=== PATIENT | female | born 1935 | race Caucasian/White ===

== ENCOUNTER 2016-07-26 12:26 | Inpatient (IN) | payer MEDICARE, OTHER ==
--- NOTE | ~2016-07-26 | HP ---
History And Physical [place] [id number] [place]. [address] NAME: RADHA HAILE : 37 STATUS : ADM IN [facility]#: [id number] AGE: 81 ADM/REG DATE : 07/26/16 MR#: [id number] REPORT SERV DATE: 07/26/16 DICTATED BY: KATIE LUBIN DATE: 07/26/16 REPORT STATUS : Draft TRANSCRIBED BY: MODFei DATE: 07/26/16 DATE OF ADMISSION: 07/26/2016 REASON FOR ADMISSION: This is a cardiology admission H and P regarding elevated troponin, probable ine-KM-lwwiomwxz myocardial infarction. HISTORY OF PRESENT ILLNESS: Ms. Haile is a very pleasant 81-year-old woman. She is a patient of Dr. Emery Ruggiero, who sees her for paroxysmal atrial fibrillation. The patient has CAD risk factors most notable for age and a positive family history of premature coronary artery disease. The patient was at home last evening, noted left arm pain described as a severe dull ache. She felt this radiating into her jaw. She denied any shortness of breath or chest pain. This episode occurred at rest. She has had some similar episodes but not quite as severe in the last few weeks. She presented to the emergency room today because of the symptoms, although her discomfort had cleared by then. In the emergency room, an EKG was performed that did not demonstrate any acute findings. Her troponin, however, was elevated at 2.55. The patient denied any palpitations and there has been no evidence of any atrial arrhythmia issues. PAST MEDICAL HISTORY: Notable for paroxysmal atrial fibrillation, treated with flecainide. There is no preexisting history of coronary artery disease. She denies a history of hypertension, but she appears she is on multiple antihypertensive medications. She has a history of hiatal hernia and obstructive sleep apnea. CURRENT MEDICATIONS: Include apixaban 2.5 mg p.o. b.i.d., flecainide 50 mg p.o. b.i.d., Prevacid, losartan and hydrochlorothiazide, and nifedipine. FAMILY HISTORY: Notable for mother who had premature coronary artery disease. SOCIAL HISTORY: Negative for tobacco or alcohol. REVIEW OF SYSTEMS: As noted above. All other systems reviewed and negative. PHYSICAL EXAMINATION: GENERAL: She is in no acute distress. She is denying any chest or arm pain at this point in time. VITAL SIGNS: Her blood pressure is 153/68, pulse is 62 and regular, and respirations 16. HEENT: No icterus. Good dentition. NECK: Supple. No masses or thyromegaly LUNGS: Breathing comfortably. No rales or wheezes. COR: Normal S1, S2. No S3 or S4. No murmurs, clicks, rubs. No JVD ABD: Soft, nondistended, nontender, no hepatosplenomegaly. EXT: No clubbing, cyanosis or edema. Peripheral pulses 2+/=bilaterally. SKIN: Warm and dry. No visible lesions. History And Physical [address] [place]. [address] NAME: RADHA HAILE : 37 STATUS : ADM IN [facility]#: [id number] AGE: 81 ADM/REG DATE : 07/26/16 MR#: [id number] REPORT SERV DATE: 07/26/16 DICTATED BY: KATIE LUBIN DATE: 07/26/16 REPORT STATUS : Draft TRANSCRIBED BY: NICOLE DATE: 07/26/16 MS: Chest wall without deformity, no obvious clavicular fractures. NEURO/PSYCH: Oriented X3. No anxiety or depression. IMAGING PROCEDURE: EKG demonstrates sinus rhythm, heart rate 62 beats per minute. First degree AV block, probable inferior Q-waves consistent with previous inferior myocardial infarction. QRS and QT are intervals within normal limits. LABORATORY VALUES: BUN, creatinine, and electrolytes all within normal limits. White count within normal limits. H and H within normal limits. Troponin elevated at 2.55. IMPRESSION: 1. Left arm pain and positive troponin very suggestive of non-ST elevation myocardial infarction. 2. History of atrial fibrillation, treated with flecainide. 3. History of reflux disease and hiatal hernia. 4. History of hypertension, on multiple antihypertensive medicines. PLAN: 1. Troponin q.8 hours x3. 2. We will hold Eliquis. 3. We will start heparin 12 hours after her last Eliquis dose. This will occur at 7 p.m. We will give a bolus of heparin at the same time. 4. Discontinue flecainide given the patient appears to have probable myocardial infarction. 5. Plan for cardiac catheterization tomorrow with possible PTCA and stents history. I have described the procedure to the patient, noted inherent risks, including bleeding, infection, heart attack, stroke, and risk of . She is willing to proceed. ADDENDUM: Because of borderline sinus bradycardia and first-degree AV block, I am going to not administer beta shaquille at this point in time. She did receive a 325 mg aspirin and will continue with 81 mg aspirin as well. NICKOLAS/NICOLE Katie Lubin M.D. / [id number] CC: Katie Lubin M.D. NO PCP
--- NOTE | ~2016-07-26 | CN ---
Consultation Report [facility] [address] [place]. [address] NAME: RADHA HAILE : 37 STATUS : ADM IN PAT#: [id number] AGE: 81 ADM/REG DATE : 07/26/16 MR#: [id number] REPORT SERV DATE: 07/27/16 DICTATED BY: URDY CASTELLON DATE: 07/27/16 REPORT STATUS : Draft TRANSCRIBED BY: MODL DATE: 07/27/16 DATE OF CONSULTATION: 07/27/2016 NURSE PRACTITIONER WITH [facility] REASON FOR CONSULTATION: Multivessel coronary artery disease. HISTORY OF PRESENT ILLNESS: This is a pleasant 81-year-old female, who has a history of paroxysmal atrial fibrillation on flecainide and Eliquis, who presented to the emergency room on 07/26/2016 with complaints of left arm pain and pain radiating up into her jaw. Her EKG was normal with initial troponin of 2.55. She was admitted with NSTEMI and taken for a cardiac catheterization today and found to have multivessel coronary artery disease including a severe 99% mid RCA, 85% proximal to the 70% mid LAD, 80% 1st diagonal, 85% 2nd diagonal, 75% 1st obtuse marginal and 80% proximal circ. There is no mention of valvular abnormality echocardiogram is currently pending. Currently, the patient is recovering after cardiac catheterization with no complaints of chest pain or shortness of breath. Her family is with her at the bedside. PAST MEDICAL HISTORY: Significant for paroxysmal atrial fibrillation. First-degree AV block. Renal insufficiency. Hiatal hernia. Obstructive sleep apnea. High blood pressure. FAMILY HISTORY: She has a mother and brother with heart disease. SOCIAL HISTORY: She is , with a daughter. No use of tobacco, alcohol, or use of illicit drugs. ALLERGIES: CIPRO AND NIACIN. MEDICATIONS: Eliquis 2.5 mg p.o. b.i.d., last dose yesterday; flecainide 50 mg p.o. b.i.d.; Prevacid 15 mg daily p.r.n.; Hyzaar 50/12.5 p.o. daily; and nifedipine 30 mg per day. REVIEW OF SYSTEMS: A 10-point review of systems was obtained and is negative other than in HPI. PHYSICAL EXAMINATION: VITAL SIGNS: From today, temperature 98.3, heart rate 53, sinus mireille with first degree AV block, blood pressure 134/63, respiratory rate 16, and O2 saturation 97%. GENERAL: Pleasant thin female, in no acute distress. NEUROLOGIC: Alert and oriented x3. Pupils exhibit PERRLA. HEENT: Head normocephalic and atraumatic. Sclerae clear. NECK: Supple. LUNGS: Clear to auscultation bilaterally with normal effort. CARDIAC: S1 and S2 with no murmurs or rubs or gallops. Sinus bradycardia with first-degree AV block. ABDOMEN: Soft, flat nontender with active bowel sounds. EXTREMITIES: Free of cyanosis, clubbing, or edema. Consultation Report [place] [id number] [facility] [place]. [address] NAME: RADHA HAILE : 37 STATUS : ADM IN [facility]#: [id number] AGE: 81 ADM/REG DATE : 07/26/16 MR#: [id number] REPORT SERV DATE: 07/27/16 DICTATED BY: RUDY CASTELLON DATE: 07/27/16 REPORT STATUS : Draft TRANSCRIBED BY: NICOLE DATE: 07/27/16 LAB DATA: White blood cell count 6.0, hemoglobin 12.6, hematocrit 36.6, and platelets 218. Sodium 137, potassium 4.0, chloride 103, bicarbonate 23, BUN 29, and creatinine 1.1. Glucose 83. ASSESSMENT AND PLAN: This is a pleasant 81-year-old female, who has had a history of paroxysmal atrial fibrillation and high blood pressure, presented to the ER with left arm pain and jaw pain. Her troponin was elevated although EKG showed no acute ST changes. She was admitted with NSTEMI and taken for cardiac catheterization today and found to have multivessel coronary artery disease with a very tight right coronary artery as described above. The patient has been on Eliquis with her last dose yesterday and is currently free of any chest pain. She is being started on heparin drip and Eliquis has been on hold. I discussed the plan of care with Dr. Forrest and reviewed the images with him in the operating room, and he is hesitant to take her to surgery today since she is not having any symptoms and her last dose of Eliquis was yesterday. We will plan for surgical intervention on Saturday morning at 8 a.m. and I will notify the on-call for the surgeon this weekend should she began to start having symptoms. I discussed risks and benefits of coronary artery bypass grafting with the patient and her family also discussed STS risk scores. STS risk stratification for her and this particular surgery include an overall mortality of 3.9% and a morbidity mortality of 21%. I discussed these findings in regard to expectations for surgery in recovery and they are willing to proceed. We will order bilateral lower extremity venous mapping and carotid ultrasound. We will also hold the Hyzaar for now and await renal recovery. Thank you for the consultation. ROSA/NICOLE Rudy Castellon NP / [id number] CC: Andrae Wilcox M.D.
--- NOTE | ~2016-07-26 | DS ---
Discharge Summary [facility] [address] [place]. [address] NAME: RADHA HAILE : 39 STATUS : DIS IN PAT#: [id number] AGE: 81 ADM/REG DATE : 07/26/16 MR#: [id number] REPORT SERV DATE: 08/14/16 DICTATED BY: KATIE LUBIN DATE: 08/13/16 REPORT STATUS : Draft TRANSCRIBED BY: MODFei DATE: 08/13/16 Data Collection from hospitalization DISCHARGE DIAGNOSES: 1. Coronary artery disease. 2. Paroxysmal atrial fibrillation. 3. Hypertension. 4. Byh-LE-xnvokbfxx myocardial infarction. 5. Obstructive sleep apnea. 6. Hiatal hernia. 7. Renal insufficiency. CONSULTATIONS: Duarte Gomes NP. PROCEDURES: 1. Cardiac catheterization, 07/27/2016. 2. Median sternotomy, extracorporeal circulation, urgent coronary artery bypass grafting x4 with PARK to the LAD, reverse greater saphenous vein graft to the diagonal-2, reverse greater saphenous vein graft to the obtuse marginal #1, reverse greater saphenous vein graft to the right coronary artery, pulmonary vein isolation, left atrial appendage clip with 35 mm atrial clip, transesophageal echocardiogram, endoscopic vein harvest from the bilateral thighs, Prevena dressing placement, 07/30/2016. 3. Carotid blood flow study, 07/28/2016, vein mapping of the bilateral lower extremities 07/28/2016. DISCHARGE MEDICATIONS: Vitamin C 1000 mg twice a day, Halfprin 81 mg daily, Lipitor 40 mg at bedtime, Lopressor 12.5 mg every 12 hours as instructed, Hyzaar one tablet every evening, Eliquis 2.5 mg twice a day, Prevacid 15 mg daily as needed. CONDITION ON DISCHARGE: Stable. DISPOSITION: The patient was discharged to [facility] on a cardiac diet with activities as instructed. She would follow up with Dr. Rip Forrest, 08/21/[address] Ruggiero, 08/29/2016. HOSPITAL COURSE: This is a 81-year-old female who is a patient of Dr. Emery Ruggiero. He sees her for paroxysmal atrial fibrillation. The patient has coronary artery disease risk factors most notable for age and positive family history of premature coronary artery disease. The patient was home on the evening prior to this admission and developed left arm pain that she described as a severe dull ache. She felt this radiating into her jaw. She denied any shortness of breath or chest pain. This episode occurred at rest. She had some similar episodes but not quite as severe in the past few weeks. She presented to the emergency room because of the symptoms although her discomfort had cleared by then. In the emergency room, an EKG did not demonstrate any acute findings. Her troponin was elevated at 2.55. She denied any palpitations and there was no evidence of any atrial arrhythmia issues. She was admitted to the hospital for further evaluation and treatment. Discharge Summary [place] [id number] [facility] [place]. [address] NAME: RADHA HAILE : 39 STATUS : DIS IN [facility]#: [id number] AGE: 81 ADM/REG DATE : 07/26/16 MR#: [id number] REPORT SERV DATE: 08/14/16 DICTATED BY: KATIE LUBIN DATE: 08/13/16 REPORT STATUS : Draft TRANSCRIBED BY: NICOLE DATE: 08/13/16 Upon admission, troponin was elevated at 2.55. It was felt that her symptoms were very suggestive of dya-OG-cezdugbba myocardial infarction. We were going to check troponin every 8 hours x3. Eliquis was held. We were going to start heparin 12 hours after her last Eliquis dose. She was going to be given a bolus of heparin at the same time. Flecainide was discontinued. It was felt that the patient would need to undergo cardiac catheterization and possible PTCA. Because of borderline sinus bradycardia and first degree AV block, I elected not to administer beta-shaquille at this point in time. She did receive aspirin and we would continue with 81 mg of aspirin as well. On the day following admission, the patient was taken to the [facility] by Dr. Hoang where she underwent the above-mentioned procedure. She tolerated this well. There were no complications. She was seen by Duarte Gomes. Cardiac catheterization revealed multivessel coronary artery disease including severe 99% mid RCA, 85% proximal to 70% mid LAD, 80% first diagonal, 85% second diagonal, 75% first obtuse marginal, and 80% proximal circumflex. There was no mention of valvular abnormality. Echocardiogram was pending. It was felt that the patient would need to undergo coronary artery bypass grafting. Hyzaar was held. On 07/28/2016, a carotid blood flow study was performed as well as vein mapping of the bilateral lower extremities. Echocardiogram was also performed. She remained comfortable. She had no chest pain. Beta-shaquille was held preoperatively for bradycardia. On 07/30/2016, the patient was taken to the operating room by Dr. Rip Forrest where she underwent the above-mentioned procedure. She tolerated this well and there were no complications. On postop day #1, she was up sitting in a chair. She looked good. She said she felt sore but this was tolerable. She had a decreased appetite. Creatinine level was stable at 0.92. On postop day #2, she had decreased urine output. She had good response to Lasix. Diuresis continued. She was off Cardene. Blood pressure was controlled. Her rhythm was stable. On 08/02/2016, she had good urine output with Lasix. She still did not have much of an appetite. She felt fatigued. She was ambulatory. She still had some sternal discomfort which was tolerable with medications. She had multiple bowel movements. Discharge planning was performed. Amiodarone was going to be discontinued at discharge. On 08/04/2016, her sternum was clean, dry, and intact. She had no new complaints. Her lungs were clear. Discharge instructions were given. Due to her improved and stable condition, she was discharged to [facility] with the above-stated instructions. Information collected by: Hailey Mustafa I submit the above information as my discharge summary. TG/MODL Katie Lubin M.D. / [id number] CC: Katie Lubin M.D. Discharge Summary [address] [address] NAME: RADHA HAILE : 37 STATUS : DIS IN PAT#: [id number] AGE: 81 ADM/REG DATE : 07/26/16 MR#: [id number] REPORT SERV DATE: 08/14/16 DICTATED BY: KATIE LUBIN DATE: 08/13/16 REPORT STATUS : Draft TRANSCRIBED BY: NICOLE DATE: 08/13/16 [facility]
--- NOTE | ~2016-07-26 | OP ---
Record Of Operation [facility] [place]. [address] NAME: RADHA HAILE : 37 STATUS : ADM IN PAT#: [id number] AGE: 81 ADM/REG DATE : 07/26/16 MR#: [id number] REPORT SERV DATE: 07/30/16 DICTATED BY: RIP KILPATRICK DATE: 07/30/16 REPORT STATUS : Draft TRANSCRIBED BY: MODFei DATE: 07/30/16 DATE OF PROCEDURE: 07/30/2016 ATTENDING PHYSICIAN: Rip Kilpatrick MD REFERRING PHYSICIANS: Dr. Andrae Wilcox, Dr. Emery Ruggiero, and Dr. Mati Up. ASSISTANTS: MERE Etienne. ANESTHESIOLOGIST: Dr. Emery Short. PREOPERATIVE DIAGNOSES: 1. Ron-UO-bjfflxl elevation myocardial infarction. 2. Three-vessel coronary disease. 3. Paroxysmal atrial fibrillation. 4. Bradycardia. 5. Hypertension. 6. Hyperlipidemia. 7. Obstructive sleep apnea. 8. Hiatal hernia. POSTOPERATIVE DIAGNOSES: 1. Xqe-LW-hsjcsov elevation myocardial infarction. 2. Three-vessel coronary disease. 3. Paroxysmal atrial fibrillation. 4. Bradycardia. 5. Hypertension. 6. Hyperlipidemia. 7. Obstructive sleep apnea. 8. Hiatal hernia. OPERATION PROCEDURE PERFORMED: 1. Median sternotomy. 2. Extracorporeal circulation. 3. Urgent coronary artery bypass grafting x4, PARK to the left anterior descending, reverse greater saphenous vein graft to D2, reverse greater saphenous vein graft to obtuse marginal #1, reverse greater saphenous vein graft to RCA. 4. Pulmonary vein isolation. 5. Left atrial appendage clip with 35 mm AtriClip. 6. RACQUEL. 7. Endoscopic vein harvest of bilateral thighs. 8. Prevena dressing placement. COMPLICATIONS: None. TUBES AND DRAINS: A 24-Beninese Antwan, 30-Beninese straight atrial and ventricular wires. Record Of Operation [facility] [address] [place]. [address] NAME: RADHA HAILE : 37 STATUS : ADM IN PAT#: [id number] AGE: 81 ADM/REG DATE : 07/26/16 MR#: [id number] REPORT SERV DATE: 07/30/16 DICTATED BY: RIP KILPATRICK DATE: 07/30/16 REPORT STATUS : Draft TRANSCRIBED BY: MODL DATE: 07/30/16 POSTOPERATIVE CONDITION: Stable to CVICU. INTRAOPERATIVE FINDINGS: Excellent conduit, excellent target, excellent ventricle. On transesophageal echo, there was normal EF, no MR, no AI, no with no clot in the left atrial appendage. There was preserved EF post bypass. Pulmonary vein isolation was done with AtriCure clamp 3 times on each pulmonary vein cuff of the left atrium. It was applied in use per brush head maker's specifications. DETAILS: Left atrial appendage clip was sized to a 35 mm clip and this was applied without incident. DETAILS OF CARDIOPULMONARY BYPASS GRAFTING: Grafts: 1. Graft #1: Left internal mammary artery, left anterior descending was a 1.5 mm target with excellent Doppler signals both pre and post protamine. 2. Graft #2: Reverse greater saphenous vein graft to D2. This was again a 1.5 mm target with excellent Doppler signals both pre and post protamine. 3. Graft #3: Reverse greater saphenous vein graft to obtuse marginal #1 was a 2 mm target with excellent Doppler signals both pre and post protamine. 4. Graft #4: Reverse greater saphenous vein graft to right coronary artery distal right, this was a 2 mm target again with excellent Doppler signals both pre and post protamine. INDICATIONS FOR PROCEDURE: Ms. Haile is a 81-year-old female with a history of NSTEMI three- vessel disease ,paroxysmal atrial fibrillation, bradycardia, hypertension, hyperlipidemia, and obstructive sleep apnea who was admitted to the hospital with NSTEMI and underwent heart catheterization and was referred for surgery. She was considered as well due to her paroxysmal atrial fibrillation for a pulmonary vein isolation and an AtriClip. The risks, benefits, and alternatives were discussed with the patient including but not limited to bleeding, infection, stroke, , heart attack, need for future operations. All questions were answered. Her STS score was discussed with her as well. STS mortality less than 5% and morbidity less than 20% were discussed with her. DETAILS OF PROCEDURE: The patient was brought to the operating room, placed on the operating room table. After satisfactory induction of general endotracheal anesthesia, she was prepped and draped in the usual sterile fashion. Working simultaneously, endoscopic vein harvest was performed from both thighs while median sternotomy was performed. Median sternotomy was performed. Skin and subcutaneous tissues were divided. Clavipectoral fascia was divided. The sternum was divided. Midline hemostasis was achieved. The Rultract retractor was placed. The internal mammary artery was harvested in a pedicle fashion. There was takeoff under the subclavian artery and subclavian vein to the bifurcation of the diaphragm. Systemic heparin sedation was achieved. After 3 minutes, the pedicle was clipped and divided at the bifurcation of the diaphragm. The Rultract retractor was removed. Hemostasis had been obtained along the chest wall and a 24-Beninese Antwan was placed in the left pleural space and exteriorized. The sternal retractor was placed. The thymic tissue was divided in the midline up to the innominate vein. The pericardium was opened in the midline and along the diaphragm. Pericardial well was created. Ascending aorta was Record Of Operation [facility] [address] [facility] [place]. [address] NAME: RADHA HAILE : 39 STATUS : ADM IN [facility]#: [id number] AGE: 81 ADM/REG DATE : 07/26/16 MR#: [id number] REPORT SERV DATE: 07/30/16 DICTATED BY: RIP KILPATRICK DATE: 07/30/16 REPORT STATUS : Draft TRANSCRIBED BY: NICOLE DATE: 07/30/16 cannulated at the base of the innominate artery through a dual pursestring with a soft flow arterial cannula. Dual stage venous cannula was placed through a pursestring in the right atrial appendage. The antegrade root vent cardioplegia tack was placed. Conduit was inspected and prepared for bypass. Cardiopulmonary bypass was initiated after the documentation of adequate ACT. After initiating bypass, the pulmonary vein isolation was performed. The right atrial vein cuff of the left atrium was encircled and fired and the clamp was used as per the brush head maker's specifications. The same was done on the left. The ligament of Felipe was dissected on the left side. AtriClip was sized to a 35 mm clip and the clip was applied after the heart was arrested. Cross-clamp was brought up. Heart was arrested with cold antegrade cardioplegia switching cold antegrade cardioplegia every 15 to 20 minutes throughout the remainder of the cross clamp. The grafts were then performed as mentioned in the findings. All distal anastomoses were done with 8-0 Surgipro. Proximal anastomoses were done after measuring the veins cutting, spatulating. Aortotomies were performed and creating an aortotomy with an 11 blade. This was enlarged with a 4.5 mm punch. The anastomoses were done with 6-0 Prolene. Vein markers were placed. The internal mammary artery was brought down through a wide V in the pericardium. It was placed to the soft spot on the anterior surface of the LAD. This anastomosis was done with 8-0 Surgipro. The pedicle was attached to the heart in two places and there was excellent Doppler signals both distal and proximal to the anastomosis and the graft. Cross-clamp was removed. The grafts were de-aired prior to the cross-clamp being removed. Atrial and ventricular pacing wires were placed. The patient returned to paced rhythm and was able to be weaned from cardiopulmonary bypass without incident. Protamine was administered. She was decannulated. All cannulae and cannulation sites were oversewn with 4-0 Prolene. A 32-Beninese chest tube was placed beneath the sternum. The pericardium was loosely reapproximated over the right ventricle and the ascending aorta. Sternum was then reapproximated using stainless steel sternal wires. Some of these were double wires. The clavipectoral fascia was reapproximated using running #1 StrataFix. The subcutaneous tissue was closed using running #1 StrataFix. Skin closed using 2-0 Quill and a Prevena dressing was placed. The patient tolerated the procedure well and went to the CVICU in critical stable condition. [facility]/MODL Rip Kilpatrick MD / [id number] CC: Andrae Wilcox M.D.
[~2016-07-26 12:26] MED LIST: AFEDITAB30 MG PO; ELIQUIS 2.5 MG2.5 MG PO; FLECAINIDE50 MG PO; HYZAAR 50/12.51 TAB PO; PREV15 PO
[2016-07-26 13:18] LABS: BASOPHILS 0.3 %; BASOPHILS ABSOLUTE 0.02 10/3/uL (0.0-0.16); EOSINOPHILS 2.2 %; EOSINOPHILS ABSOLUTE 0.13 10/3/uL (0.0-0.53); HEMATOCRIT 39.2 % (36.0-48.0); HEMOGLOBIN 13.2 g/dL (12.0-16.0); IMMATURE GRANULOCYTES 0.2 %; IMMATURE GRANULOCYTES ABSOLUTE 0.01 10/3/uL (0.0-0.11); LYMPHOCYTES 28.2 %; LYMPHOCYTES ABSOLUTE 1.65 10/3/uL (0.67-4.30); MEAN CORPUS HGB CONC 33.7 g/dL (32.0-36.0); MEAN CORPUSCULAR HEMOGLOB 30.6 pg (26.0-34.0); MONOCYTES 8.2 %; MONOCYTES ABSOLUTE 0.48 10/3/uL (0.21-1.20); NEUTROPHILS 60.9 %; NEUTROPHILS ABSOLUTE 3.56 10/3/uL (2.02-8.40); PLATELET COUNT 237 10/3/uL (150-400); RBC DISTRIBUTION WIDTH 12.1 % (12.0-16.0); RED CELL COUNT 4.31 10/6/uL (4.0-5.6); WHITE BLOOD CELLS 5.9 10/3/uL (4.5-10.5)
[2016-07-26 13:19] LABS: ER CBC TAT 0 Hrs 06 MinsNP; MANUAL DIFF NO %
[2016-07-26 13:24] LABS: INTERNATIONAL NORMAL RATI 1.2 UNITS (-); PARTIAL THROMBO TIME 35.5 SEC (22.5-37.2); PROTIME (NOT ORD) 15.1 SEC (12.0-14.5)
[2016-07-26 13:36] LABS: BUN (BLOOD UREA NITROGEN) 25 MG/DL (6-23); CALCIUM, SERUM 9.4 MG/DL (8.5-10.4); CHEST PAIN PROFILE TAT 0 Hrs 24 Mins; CHLORIDE, SERUM 102 MMOL/L (96-112); CO2 (CARBON DIOXIDE) 26 MMOL/L (24-34); CREATININE 1.13 MG/DL (0.55-1.02); GFR AFRICAN AMERICAN 54 ML/MIN (>=60); GFR NON AFRICAN AMERICAN 46 ML/MIN (>=60); GLUCOSE, SERUM 83 MG/DL (60-99); POTASSIUM, SERUM 3.9 MMOL/L (3.5-5.3); SODIUM, SERUM 136 MMOL/L (135-148); TROPONIN I 2.55 NG/ML (<0.05)
[2016-07-26 21:46] LABS: ASCORBIC ACID (UR NOT ORDER) NEG (NEG); BILIRUBIN, URINE NEGATIVE (NEG); KETONE, URINE TRACE MG/DL (NEG); LEUKOCYTE ESTERASE(NOT OR NEG (NEG); WBC (NOT ORDERED) (RFLEX) 1 (0-5)
[2016-07-27 05:24] LABS: CHLORIDE, SERUM 103 MMOL/L (96-112); CHOL/HDL RATIO(NOT ORDER) 4.8 (0-5); CHOLESTEROL 219 MG/DL (< 200); CO2 (CARBON DIOXIDE) 23 MMOL/L (24-34); CREATININE 1.11 MG/DL (0.55-1.02); GFR AFRICAN AMERICAN 55 ML/MIN (>=60); GFR NON AFRICAN AMERICAN 47 ML/MIN (>=60); GLUCOSE, SERUM 83 MG/DL (60-99); HDL CHOLESTEROL 46 MG/DL (> 49); NON-HDL CHOLESTEROL 173 MG/DL (< 160); SGPT(ALT) 16 U/L (5-65); SODIUM, SERUM 137 MMOL/L (135-148)
[2016-07-27 05:29] LABS: BUN (BLOOD UREA NITROGEN) 29 MG/DL (6-23); LDL CHOLESTEROL 152 MG/DL (< 130); TRIGLYCERIDE 107 MG/DL (< 150); TROPONIN I 1.74 NG/ML (<0.05)
[2016-07-27 05:53] LABS: BASOPHILS 0.7 %; BASOPHILS ABSOLUTE 0.04 10/3/uL (0.0-0.16); EOSINOPHILS 5.5 %; EOSINOPHILS ABSOLUTE 0.33 10/3/uL (0.0-0.53); HEMATOCRIT 36.6 % (36.0-48.0); HEMOGLOBIN 12.6 g/dL (12.0-16.0); IMMATURE GRANULOCYTES 0.2 %; IMMATURE GRANULOCYTES ABSOLUTE 0.01 10/3/uL (0.0-0.11); LYMPHOCYTES 42.7 %; LYMPHOCYTES ABSOLUTE 2.57 10/3/uL (0.67-4.30); MEAN CORPUS HGB CONC 34.4 g/dL (32.0-36.0); MEAN CORPUSCULAR HEMOGLOB 31.5 pg (26.0-34.0); MEAN CORPUSCULAR VOLUME 91.5 fL (80-100); MEAN PLATELET VOLUME 10.4 fL (9.2-13.0); MONOCYTES ABSOLUTE 0.54 10/3/uL (0.21-1.20); NEUTROPHILS 41.9 %; NEUTROPHILS ABSOLUTE 2.53 10/3/uL (2.02-8.40); PLATELET COUNT 218 10/3/uL (150-400); RBC DISTRIBUTION WIDTH 12.5 % (12.0-16.0)
[2016-07-27 05:54] LABS: MANUAL DIFF NO %
[2016-07-27 19:34] LABS: INTERNATIONAL NORMAL RATI 1.1 UNITS (-); PARTIAL THROMBO TIME 44.9 SEC (22.5-37.2)
[2016-07-28 06:42] LABS: BASOPHILS 0.5 %; BASOPHILS ABSOLUTE 0.03 10/3/uL (0.0-0.16); EOSINOPHILS 5.7 %; EOSINOPHILS ABSOLUTE 0.31 10/3/uL (0.0-0.53); HEMATOCRIT 37.2 % (36.0-48.0); HEMOGLOBIN 12.8 g/dL (12.0-16.0); LYMPHOCYTES 36.4 %; LYMPHOCYTES ABSOLUTE 1.99 10/3/uL (0.67-4.30); MEAN CORPUS HGB CONC 34.4 g/dL (32.0-36.0); MEAN CORPUSCULAR HEMOGLOB 31.1 pg (26.0-34.0); MEAN CORPUSCULAR VOLUME 90.3 fL (80-100); MEAN PLATELET VOLUME 10.3 fL (9.2-13.0); MONOCYTES 10.6 %; MONOCYTES ABSOLUTE 0.58 10/3/uL (0.21-1.20); NEUTROPHILS 46.8 %; NEUTROPHILS ABSOLUTE 2.55 10/3/uL (2.02-8.40); PLATELET COUNT 231 10/3/uL (150-400); RBC DISTRIBUTION WIDTH 12.7 % (12.0-16.0); RED CELL COUNT 4.12 10/6/uL (4.0-5.6); WHITE BLOOD CELLS 5.5 10/3/uL (4.5-10.5)
[2016-07-28 06:43] LABS: MANUAL DIFF NO %
[2016-07-28 06:59] LABS: CALCIUM, SERUM 8.8 MG/DL (8.5-10.4); CHLORIDE, SERUM 104 MMOL/L (96-112); CO2 (CARBON DIOXIDE) 25 MMOL/L (24-34); CREATININE 1.04 MG/DL (0.55-1.02); GFR AFRICAN AMERICAN 59 ML/MIN (>=60); GFR NON AFRICAN AMERICAN 51 ML/MIN (>=60); GLUCOSE, SERUM 90 MG/DL (60-99); POTASSIUM, SERUM 3.8 MMOL/L (3.5-5.3); SODIUM, SERUM 139 MMOL/L (135-148)
[2016-07-28 07:02] LABS: BUN (BLOOD UREA NITROGEN) 24 MG/DL (6-23); TROPONIN I 1.25 NG/ML (<0.05)
[2016-07-30 01:00] LABS: ASCORBIC ACID (UR NOT ORDER) NEG (NEG); BILIRUBIN, URINE NEGATIVE (NEG); KETONE, URINE NEGATIVE (NEG); WBC (NOT ORDERED) (RFLEX) 3 (0-5)
[2016-07-30 01:03] LABS: LEUKOCYTE ESTERASE(NOT OR TRACE (NEG)
[2016-07-30 04:06] LABS: BASOPHILS 0.6 %; BASOPHILS ABSOLUTE 0.04 10/3/uL (0.0-0.16); EOSINOPHILS 7.5 %; EOSINOPHILS ABSOLUTE 0.48 10/3/uL (0.0-0.53); HEMATOCRIT 37.4 % (36.0-48.0); HEMOGLOBIN 12.8 g/dL (12.0-16.0); IMMATURE GRANULOCYTES 0.2 %; IMMATURE GRANULOCYTES ABSOLUTE 0.01 10/3/uL (0.0-0.11); LYMPHOCYTES 36.5 %; LYMPHOCYTES ABSOLUTE 2.35 10/3/uL (0.67-4.30); MEAN CORPUS HGB CONC 34.2 g/dL (32.0-36.0); MEAN CORPUSCULAR HEMOGLOB 31.4 pg (26.0-34.0); MEAN CORPUSCULAR VOLUME 91.9 fL (80-100); MEAN PLATELET VOLUME 10.5 fL (9.2-13.0); MONOCYTES 8.4 %; MONOCYTES ABSOLUTE 0.54 10/3/uL (0.21-1.20); NEUTROPHILS 46.8 %; NEUTROPHILS ABSOLUTE 3.02 10/3/uL (2.02-8.40); PLATELET COUNT 234 10/3/uL (150-400); RBC DISTRIBUTION WIDTH 12.7 % (12.0-16.0); RED CELL COUNT 4.07 10/6/uL (4.0-5.6); WHITE BLOOD CELLS 6.4 10/3/uL (4.5-10.5)
[2016-07-30 04:07] LABS: MANUAL DIFF NO %
[2016-07-30 04:14] LABS: PROTIME (NOT ORD) 12.9 SEC (12.0-14.5)
[2016-07-30 04:15] LABS: PARTIAL THROMBO TIME 72.3 SEC (22.5-37.2)
[2016-07-30 04:19] LABS: A/G RATIO 0.8 (0.7-1.9); ALBUMIN 3.3 G/DL (3.5-5.0); BUN (BLOOD UREA NITROGEN) 27 MG/DL (6-23); CALCIUM, SERUM 8.7 MG/DL (8.5-10.4); CHLORIDE, SERUM 107 MMOL/L (96-112); CO2 (CARBON DIOXIDE) 23 MMOL/L (24-34); CREATININE 1.05 MG/DL (0.55-1.02); GFR AFRICAN AMERICAN 58 ML/MIN (>=60); GFR NON AFRICAN AMERICAN 50 ML/MIN (>=60); GLUCOSE, SERUM 96 MG/DL (60-99); IRON, SERUM 100 MCG/DL (35-150); POTASSIUM, SERUM 4.1 MMOL/L (3.5-5.3); SGOT(AST) 43 U/L (5-40); SGPT(ALT) 35 U/L (5-65); SODIUM, SERUM 139 MMOL/L (135-148); TOTAL BILIRUBIN 0.5 MG/DL (0-1.2); TOTAL PROTEIN 7.3 G/DL (6.0-8.5)
[2016-07-30 04:20] LABS: ALKALINE PHOSPHATASE 105 U/L (45-117)
[2016-07-30 13:14] LABS: BE (BASE EXCESS) -6.3 MEQ/L (0 +/- 2.5); CARBOXYHEMOGLOBIN 0.1 % (0-3); HEMOBLOGIN CONTENT 10.5 G/DL (12-16); INSTRUMENT SERIAL # 11843; METHEMOGLOBIN 0.5 % (0-3); MODE SIMV; O2 CONTENT 15.3 VOL% (18-24); PCO2 (CO2 TENSION) 31 MMHG (35-45); PO2 (O2 TENSION) 330 MMHG (79-93); SAMPLE Arterial; TIDAL VOLUME 550 ML; pH 7.38 (7.37-7.43)
[2016-07-30 13:33] LABS: HEMATOCRIT 29.5 % (36.0-48.0); HEMOGLOBIN 10.2 g/dL (12.0-16.0); PLATELET COUNT 107 10/3/uL (150-400)
[2016-07-30 13:40] LABS: INTERNATIONAL NORMAL RATI 1.4 UNITS (-)
[2016-07-30 13:41] LABS: PARTIAL THROMBO TIME 37.7 SEC (22.5-37.2)
[2016-07-30 13:42] LABS: PROTIME (NOT ORD) 16.7 SEC (12.0-14.5)
[2016-07-30 13:44] LABS: BUN (BLOOD UREA NITROGEN) 21 MG/DL (6-23); CALCIUM, SERUM 8.5 MG/DL (8.5-10.4); CHLORIDE, SERUM 111 MMOL/L (96-112); CO2 (CARBON DIOXIDE) 21 MMOL/L (24-34); CREATININE 1.11 MG/DL (0.55-1.02); GFR AFRICAN AMERICAN 55 ML/MIN (>=60); GFR NON AFRICAN AMERICAN 47 ML/MIN (>=60); GLUCOSE, SERUM 95 MG/DL (60-99); POTASSIUM, SERUM 3.8 MMOL/L (3.5-5.3); SODIUM, SERUM 145 MMOL/L (135-148)
[2016-07-30 19:40] LABS: HEMOGLOBIN 9.4 g/dL (12.0-16.0)
[2016-07-30 19:46] LABS: POTASSIUM, SERUM 3.8 MMOL/L (3.5-5.3)
[2016-07-30 19:54] LABS: BE (BASE EXCESS) -6.6 MEQ/L (0 +/- 2.5); CARBOXYHEMOGLOBIN 0.2 % (0-3); DEVICE NC; HCO3 (ACTUAL BICARBONATE) 19.9 MEQ/L (23-27); HEMOBLOGIN CONTENT 9.9 G/DL (12-16); INSTRUMENT SERIAL # 11843; METHEMOGLOBIN 0.4 % (0-3); O2 CONTENT 13.3 VOL% (18-24); OPERATOR ID 13744; PCO2 (CO2 TENSION) 44 MMHG (35-45); PO2 (O2 TENSION) 94 MMHG (79-93); SAMPLE Arterial; pH 7.27 (7.37-7.43)
[2016-07-31 03:52] LABS: HEMATOCRIT 26.6 % (36.0-48.0); HEMOGLOBIN 9.1 g/dL (12.0-16.0); MEAN CORPUS HGB CONC 34.2 g/dL (32.0-36.0); MEAN CORPUSCULAR HEMOGLOB 31.5 pg (26.0-34.0); MEAN PLATELET VOLUME 10.6 fL (9.2-13.0); PLATELET COUNT 107 10/3/uL (150-400); RBC DISTRIBUTION WIDTH 13.1 % (12.0-16.0)
[2016-07-31 03:54] LABS: MANUAL DIFF YES %; RED CELL COUNT 2.89 10/6/uL (4.0-5.6); WHITE BLOOD CELLS 10.1 10/3/uL (4.5-10.5)
[2016-07-31 03:59] LABS: INTERNATIONAL NORMAL RATI 1.2 UNITS (-); PROTIME (NOT ORD) 14.8 SEC (12.0-14.5)
[2016-07-31 04:03] LABS: BUN (BLOOD UREA NITROGEN) 20 MG/DL (6-23); CALCIUM, SERUM 8.2 MG/DL (8.5-10.4); CHLORIDE, SERUM 115 MMOL/L (96-112); CO2 (CARBON DIOXIDE) 22 MMOL/L (24-34); CREATININE 0.92 MG/DL (0.55-1.02); GFR AFRICAN AMERICAN 69 ML/MIN (>=60); GFR NON AFRICAN AMERICAN 59 ML/MIN (>=60); GLUCOSE, SERUM 109 MG/DL (60-99); POTASSIUM, SERUM 4.3 MMOL/L (3.5-5.3); SODIUM, SERUM 148 MMOL/L (135-148)
[2016-07-31 04:17] LABS: BAND NEUTROPHILS 11 %; LYMPHOCYTES 3 %; MONOCYTES 3 %; NEUTROPHILS ABSOLUTE (CALC) 9.49 10/3/uL (2.02-8.40); PLATELET ESTIMATE SLT DEC (ADEQUATE); SEGMENTED NEUTROPHIL (0) 83 %; TOTAL NUCLEATED CELLS 100
[2016-07-31 04:18] LABS: HYPOCHROMIA 1+ (3-10/OIF) (0-2/OIF); MICROCYTES 1+ (5-10/OIF) (0-5/OIF)
[2016-08-01 04:17] LABS: BASOPHILS 0.1 %; BASOPHILS ABSOLUTE 0.01 10/3/uL (0.0-0.16); EOSINOPHILS 0.2 %; EOSINOPHILS ABSOLUTE 0.02 10/3/uL (0.0-0.53); IMMATURE GRANULOCYTES 0.3 %; IMMATURE GRANULOCYTES ABSOLUTE 0.04 10/3/uL (0.0-0.11); LYMPHOCYTES 11.3 %; LYMPHOCYTES ABSOLUTE 1.44 10/3/uL (0.67-4.30); MEAN CORPUS HGB CONC 33.6 g/dL (32.0-36.0); MEAN CORPUSCULAR HEMOGLOB 31.9 pg (26.0-34.0); MEAN PLATELET VOLUME 11.1 fL (9.2-13.0); MONOCYTES 10.5 %; MONOCYTES ABSOLUTE 1.33 10/3/uL (0.21-1.20); NEUTROPHILS 77.6 %; NEUTROPHILS ABSOLUTE 9.87 10/3/uL (2.02-8.40); PLATELET COUNT 122 10/3/uL (150-400); RBC DISTRIBUTION WIDTH 14.1 % (12.0-16.0); RED CELL COUNT 3.13 10/6/uL (4.0-5.6); WHITE BLOOD CELLS 12.7 10/3/uL (4.5-10.5)
[2016-08-01 04:21] LABS: HEMATOCRIT 29.8 % (36.0-48.0); MANUAL DIFF NO %; MEAN CORPUSCULAR VOLUME 95.2 fL (80-100)
[2016-08-01 04:31] LABS: CALCIUM, SERUM 8.7 MG/DL (8.5-10.4); CHLORIDE, SERUM 107 MMOL/L (96-112); CREATININE 1.36 MG/DL (0.55-1.02); GFR AFRICAN AMERICAN 43 ML/MIN (>=60); GFR NON AFRICAN AMERICAN 37 ML/MIN (>=60); GLUCOSE, SERUM 121 MG/DL (60-99); POTASSIUM, SERUM 4.9 MMOL/L (3.5-5.3); SODIUM, SERUM 143 MMOL/L (135-148)
[2016-08-01 04:37] LABS: BUN (BLOOD UREA NITROGEN) 33 MG/DL (6-23); CO2 (CARBON DIOXIDE) 29 MMOL/L (24-34)
[2016-08-02 05:55] LABS: BASOPHILS 0.2 %; BASOPHILS ABSOLUTE 0.02 10/3/uL (0.0-0.16); EOSINOPHILS 1.6 %; EOSINOPHILS ABSOLUTE 0.21 10/3/uL (0.0-0.53); HEMATOCRIT 28.7 % (36.0-48.0); HEMOGLOBIN 9.1 g/dL (12.0-16.0); IMMATURE GRANULOCYTES 0.3 %; IMMATURE GRANULOCYTES ABSOLUTE 0.04 10/3/uL (0.0-0.11); LYMPHOCYTES 19.8 %; LYMPHOCYTES ABSOLUTE 2.54 10/3/uL (0.67-4.30); MEAN CORPUSCULAR HEMOGLOB 30.1 pg (26.0-34.0); MEAN PLATELET VOLUME 10.8 fL (9.2-13.0); MONOCYTES 10.3 %; MONOCYTES ABSOLUTE 1.32 10/3/uL (0.21-1.20); NEUTROPHILS 67.8 %; NEUTROPHILS ABSOLUTE 8.68 10/3/uL (2.02-8.40); PLATELET COUNT 138 10/3/uL (150-400); RBC DISTRIBUTION WIDTH 13.8 % (12.0-16.0); RED CELL COUNT 3.02 10/6/uL (4.0-5.6); WHITE BLOOD CELLS 12.8 10/3/uL (4.5-10.5)
[2016-08-02 06:04] LABS: MANUAL DIFF NO %; MEAN CORPUS HGB CONC 31.7 g/dL (32.0-36.0)
[2016-08-02 06:06] LABS: CALCIUM, SERUM 8.3 MG/DL (8.5-10.4); CHLORIDE, SERUM 105 MMOL/L (96-112); CO2 (CARBON DIOXIDE) 25 MMOL/L (24-34); CREATININE 1.04 MG/DL (0.55-1.02); GFR AFRICAN AMERICAN 59 ML/MIN (>=60); GFR NON AFRICAN AMERICAN 51 ML/MIN (>=60); GLUCOSE, SERUM 100 MG/DL (60-99); POTASSIUM, SERUM 4.3 MMOL/L (3.5-5.3); SODIUM, SERUM 138 MMOL/L (135-148)
[2016-08-02 06:07] LABS: BUN (BLOOD UREA NITROGEN) 37 MG/DL (6-23)
[2016-08-03 06:48] LABS: BASOPHILS 0.2 %; BASOPHILS ABSOLUTE 0.02 10/3/uL (0.0-0.16); EOSINOPHILS 3.2 %; EOSINOPHILS ABSOLUTE 0.41 10/3/uL (0.0-0.53); HEMATOCRIT 31.4 % (36.0-48.0); HEMOGLOBIN 10.5 g/dL (12.0-16.0); IMMATURE GRANULOCYTES 0.5 %; IMMATURE GRANULOCYTES ABSOLUTE 0.06 10/3/uL (0.0-0.11); LYMPHOCYTES 15.9 %; LYMPHOCYTES ABSOLUTE 2.03 10/3/uL (0.67-4.30); MEAN CORPUSCULAR HEMOGLOB 31.6 pg (26.0-34.0); MEAN CORPUSCULAR VOLUME 94.6 fL (80-100); MEAN PLATELET VOLUME 10.5 fL (9.2-13.0); MONOCYTES 12.1 %; MONOCYTES ABSOLUTE 1.55 10/3/uL (0.21-1.20); NEUTROPHILS 68.1 %; NEUTROPHILS ABSOLUTE 8.69 10/3/uL (2.02-8.40); RBC DISTRIBUTION WIDTH 13.4 % (12.0-16.0); RED CELL COUNT 3.32 10/6/uL (4.0-5.6); WHITE BLOOD CELLS 12.8 10/3/uL (4.5-10.5)
[2016-08-03 06:49] LABS: MANUAL DIFF NO %; MEAN CORPUS HGB CONC 33.4 g/dL (32.0-36.0); PLATELET COUNT 181 10/3/uL (150-400)
[2016-08-03 07:01] LABS: CALCIUM, SERUM 8.9 MG/DL (8.5-10.4); CHLORIDE, SERUM 101 MMOL/L (96-112); CO2 (CARBON DIOXIDE) 26 MMOL/L (24-34); CREATININE 1.06 MG/DL (0.55-1.02); GFR AFRICAN AMERICAN 58 ML/MIN (>=60); GFR NON AFRICAN AMERICAN 50 ML/MIN (>=60); GLUCOSE, SERUM 95 MG/DL (60-99); POTASSIUM, SERUM 4.1 MMOL/L (3.5-5.3); SODIUM, SERUM 137 MMOL/L (135-148)
[2016-08-03 07:02] LABS: BUN (BLOOD UREA NITROGEN) 32 MG/DL (6-23)
[2016-08-04 06:53] LABS: BUN (BLOOD UREA NITROGEN) 26 MG/DL (6-23); CALCIUM, SERUM 8.7 MG/DL (8.5-10.4); CHLORIDE, SERUM 101 MMOL/L (96-112); CO2 (CARBON DIOXIDE) 28 MMOL/L (24-34); CREATININE 1.01 MG/DL (0.55-1.02); GFR AFRICAN AMERICAN 61 ML/MIN (>=60); GFR NON AFRICAN AMERICAN 53 ML/MIN (>=60); GLUCOSE, SERUM 102 MG/DL (60-99); POTASSIUM, SERUM 4.1 MMOL/L (3.5-5.3); SODIUM, SERUM 138 MMOL/L (135-148)
== END 2016-08-04 14:13 | DRG 234 ==
LOC: ER 12:26 → 6NO 14:40 → CVICU 07-30 10:38 → 5NO 08-01 12:49
PROVIDERS: Anesthesiology; Emergency Medicine; Internal Medicine Cardiovascular Disease; Nurse Practitioner Family; Thoracic Surgery (Cardiothoracic Vascular Surgery)
PROC: 4A023N7 Measurement of Cardiac Sampling and Pressure, Left Heart, Percutaneous Approach (ICD-10-PCS; principal; 2016-07-27)
PROC: B2111ZZ Fluoroscopy of Multiple Coronary Arteries using Low Osmolar Contrast (ICD-10-PCS; 2016-07-27)
PROC: B2151ZZ Fluoroscopy of Left Heart using Low Osmolar Contrast (ICD-10-PCS; 2016-07-27)
PROC: 06BP4ZZ Excision of Right Saphenous Vein, Percutaneous Endoscopic Approach (ICD-10-PCS; 2016-07-30)
PROC: 5A1221Z Performance of Cardiac Output, Continuous (ICD-10-PCS; 2016-07-30)
PROC: B246ZZ4 Ultrasonography of Right and Left Heart, Transesophageal (ICD-10-PCS; 2016-07-30)
PROC: 02L70CK Occlusion of Left Atrial Appendage with Extraluminal Device, Open Approach (ICD-10-PCS; 2016-07-30)
PROC: 021 Heart and Great Vessels, Bypass (ICD-10-PCS; 2016-07-30 07:30)
PROC: 0210099 Bypass Coronary Artery, One Artery from Left Internal Mammary with Autologous Venous Tissue, Open Approach (ICD-10-PCS; 2016-07-30 07:30)
PROC: 06BQ4ZZ Excision of Left Saphenous Vein, Percutaneous Endoscopic Approach (ICD-10-PCS; 2016-07-30 07:30)
DX: I21.4 Non-ST elevation (NSTEMI) myocardial infarction (principal); I48.0 Paroxysmal atrial fibrillation; I25.10 Atherosclerotic heart disease of native coronary artery without angina pectoris; K21.9 Gastro-esophageal reflux disease without esophagitis; K44.9 Diaphragmatic hernia without obstruction or gangrene; I10 Essential (primary) hypertension; E78.5 Hyperlipidemia, unspecified; G47.33 Obstructive sleep apnea (adult) (pediatric); Z88.1 Allergy status to other antibiotic agents; Z88.8 Allergy status to other drugs, medicaments and biological substances; Z79.899 Other long term (current) drug therapy; Z79.01 Long term (current) use of anticoagulants
CPT/HCPCS: 36415; 71010; 71020; 80048; 80053; 80061; 81001; 82330; 82803; 82805; 82947; 82962; 83036; 83540; 83735; 84132; 84295; 84460; 84484; 85014; 85018; 85025; 85049; 85347; 85610; 85730; 86850; 86900; 86901; 87641; 93005; 93306; 93312; 93320; 93325; 93458; 93882; 94002; 94640; 94660; 94770; 99152; 99284; A9270-GY; C1713; C1769; C1887; C1894; G0365; J0690; J1644; J1940; J2150; J2250; J2370; J2405; J2440; J2720; J2930; J3010; J3370; J3475; J3480; P9045; P9047; Q9967

== ENCOUNTER 2016-08-06 10:33 | Observation (INO) | payer MEDICARE, OTHER ==
--- NOTE | ~2016-08-06 | HP ---
History And Physical [facility] [id number] [place]. [address] NAME: RADHA HAILE : 39 STATUS : ADM Marco PAT#: [id number] AGE: 81 ADM/REG DATE : 08/06/16 MR#: [id number] REPORT SERV DATE: 08/06/16 DICTATED BY: YEFRI LOPEZ DATE: 08/06/16 REPORT STATUS : Draft TRANSCRIBED BY: MODL DATE: 08/06/16 DATE OF ADMISSION: 08/06/2016 REASON FOR ADMISSION: AFib with RVR, status post CABG last week. HPI: Ms. Haile is a very pleasant, 81-year-old female with a history of paroxysmal atrial fibrillation, formally on flecainide, hypertension, obstructive sleep apnea intermittently compliant with CPAP therapy, hyperlipidemia, and recent NSTEMI last week status post four- vessel CABG, Maze, and left atrial appendage clip (07/30/2016); who is presenting from home today with complaints of a syncopal episode at around 0500 hours this morning. She states that she was doing poorly after being discharged last week, Saturday, as a result of the nursing facility being dirty and not getting medications there. It was so bad, that she called family and her daughter picked her up from there and brought her home. She had been doing okay at home up until this morning at around 0500 hours when she went to get a glass of water. She was sitting and the next thing she remembers is waking up on the floor. Family brought her in this morning for further evaluation and care. She tells me that she has not had any chest pains, pressures or dizziness otherwise. Preceding her episode of passing out, she did have a fluttering sensation in her chest. She otherwise has not been on her medications as the longterm that her family took her out on Saturday did not provide her with medication list or prescriptions or medications for that matter. She comes in today upset about her experience at that facility and is now interested in pursuing Home Health and staying with her daughter. She otherwise has no other complaints. PAST MEDICAL HISTORY: As above. SOCIAL HISTORY: The patient lives at home alone, but her daughter lives close by and is happy to arrange staying with her or have her stay with them. She does deny drinking alcohol, smoking or doing drugs. FAMILY HISTORY: Noncontributory for premature cardiovascular disease. REVIEW OF SYSTEMS: As above, all other systems otherwise negative. HOME MEDICATIONS: (Unclear as patient does not have a discharge summary uploaded/scanned yet due to recent discharge just 2-3 days ago), however, following medicines are provided by pharmacist. 1. Eliquis 2.5 mg p.o. b.i.d. 2. Aspirin 81 mg p.o. daily. 3. Flecainide 50 mg p.o. b.i.d.(I was unsure as to whether she was actually on this medicine, given new diagnosis of CAD, status post CABG last week). 4. Prevacid. 5. Hyzaar 50/12.5. 6. Nifedipine. 7. Prednisone taper. History And Physical [address] [address] NAME: RADHA HAILE : 39 STATUS : ADM Marco PAT#: [id number] AGE: 81 ADM/REG DATE : 08/06/16 MR#: [id number] REPORT SERV DATE: 08/06/16 DICTATED BY: YEFRI LOPEZ DATE: 08/06/16 REPORT STATUS : Draft TRANSCRIBED BY: NICOLE DATE: 08/06/16 PHYSICAL EXAMINATION: GENERAL: Well developed, well nourished, no acute distress. NEURO: Awake, alert and oriented x3; no focal deficits, appropriate mood. HEENT: Moist mucous membranes, anicteric sclerae, no nasal discharge. NECK: No JVD, no carotid bruit. LUNGS: Clear to auscultation bilaterally, no wheezes, rales or rhonchi. CV: Regular rhythm, normal S1/S2, no murmurs, rubs or gallops. ABD: Soft, non-tender, non-distended, no rebound or guarding. EXT: No pitting edema, normal distal pulses. SKIN: Warm, dry and intact. Mild bruising at the left temporal region from her fall, otherwise, no obvious active rash. Median sternotomy noted with wound VAC, clean, dry, and intact. PERTINENT TEST FINDINGS: White blood cell count 12.1, hemoglobin 11.7. Potassium 3.6, creatinine 1.04, troponin 0.47, INR 1.1. EKG with atrial fibrillation, left axis deviation, no ischemic changes and ventricular rate of 109 beats per minute. Telemetry now with sinus rhythm in the 60s. IMPRESSION AND PLAN: Ms. Haile is a very pleasant 81-year-old female with a history of paroxysmal atrial fibrillation, hypertension, hyperlipidemia, obstructive sleep apnea, and recently diagnosed three-vessel coronary artery disease in the setting of an NSTEMI, status post four-vessel CABG, Maze, and left atrial appendage clipping(07/30/[address] Forrest) who presents from home with a syncopal episode in the setting of atrial fibrillation with rapid ventricular rate. She is now in sinus rhythm, accordingly I have the following recommendations by problem below: 1. Atrial fibrillation with rapid ventricular response-presently in sinus rhythm. Discontinue flecainide given new diagnosis of coronary artery disease as of last week. Start amiodarone oral. This may be tapered from an outpatient basis within the next one to three months. Otherwise, continue Eliquis as written. 2. Coronary artery disease, status post four-vessel CABG-doing well postoperatively and continues to make progress from this standpoint. Continue ambulation, out of bed to chair, and incentive spirometry. Wound VAC still in place, follow up with Cardiac Surgery as previously arranged. 3. Syncopal episode x1-likely due to atrial fibrillation with rapid ventricular rate, however, may be other arrhythmic etiology. Therefore, we will admit to Obs, Tele, and monitor for other arrhythmia that may arise. 4. Obstructive sleep apnea-counseled on importance of complying with CPAP therapy going forward. 5. Placement-poor experience at last facility she was sent to this past Saturday, therefore a senior case manager is presently working on arranging for home health to be coordinated. VR/MODL Yefri Lopez MD History And Physical [address] [address] NAME: RADHA HAILE : 39 STATUS : ADM Marco PAT#: [id number] AGE: 81 ADM/REG DATE : 08/06/16 MR#: [id number] REPORT SERV DATE: 03/20/17 DICTATED BY: YEFRI LOPEZ DATE: 08/06/16 REPORT STATUS : Draft TRANSCRIBED BY: [facility] DATE: 08/06/16 / [id number] CC: Yefri Lopez MD
[2016-08-06 09:10] LABS: BASOPHILS 0.2 %; BASOPHILS ABSOLUTE 0.02 10/3/uL (0.0-0.16); EOSINOPHILS 2.7 %; EOSINOPHILS ABSOLUTE 0.32 10/3/uL (0.0-0.53); ER CBC TAT 0 Hrs 08 Mins; HEMOGLOBIN 11.7 g/dL (12.0-16.0); IMMATURE GRANULOCYTES 0.5 %; IMMATURE GRANULOCYTES ABSOLUTE 0.06 10/3/uL (0.0-0.11); LYMPHOCYTES 10.9 %; LYMPHOCYTES ABSOLUTE 1.32 10/3/uL (0.67-4.30); MEAN CORPUS HGB CONC 33.7 g/dL (32.0-36.0); MEAN CORPUSCULAR HEMOGLOB 31.5 pg (26.0-34.0); MEAN CORPUSCULAR VOLUME 93.5 fL (80-100); MEAN PLATELET VOLUME 9.5 fL (9.2-13.0); MONOCYTES 10.1 %; MONOCYTES ABSOLUTE 1.22 10/3/uL (0.21-1.20); NEUTROPHILS 75.6 %; NEUTROPHILS ABSOLUTE 9.12 10/3/uL (2.02-8.40); RBC DISTRIBUTION WIDTH 13.5 % (12.0-16.0); RED CELL COUNT 3.71 10/6/uL (4.0-5.6); WHITE BLOOD CELLS 12.1 10/3/uL (4.5-10.5)
[2016-08-06 09:11] LABS: HEMATOCRIT 34.7 % (36.0-48.0); MANUAL DIFF NO %; PLATELET COUNT 358 10/3/uL (150-400)
[2016-08-06 09:26] LABS: CALCIUM, SERUM 8.8 MG/DL (8.5-10.4); CHLORIDE, SERUM 104 MMOL/L (96-112); CO2 (CARBON DIOXIDE) 25 MMOL/L (24-34); CREATININE 1.04 MG/DL (0.55-1.02); GFR AFRICAN AMERICAN 59 ML/MIN (>=60); GFR NON AFRICAN AMERICAN 51 ML/MIN (>=60); GLUCOSE, SERUM 94 MG/DL (60-99); INTERNATIONAL NORMAL RATI 1.1 UNITS (-); PARTIAL THROMBO TIME 32.7 SEC (22.5-37.2); POTASSIUM, SERUM 3.6 MMOL/L (3.5-5.3); PROTIME (NOT ORD) 14.1 SEC (12.0-14.5); SODIUM, SERUM 141 MMOL/L (135-148)
[2016-08-06 09:27] LABS: BUN (BLOOD UREA NITROGEN) 21 MG/DL (6-23); CHEST PAIN PROFILE TAT 0 Hrs 25 Mins; TROPONIN I 0.47 NG/ML (<0.05)
[2016-08-06] MEDS ORDERED: HALF81 PO (11:10)
[2016-08-06] MEDS ORDERED: P10 PO (11:14)
[2016-08-06] MEDS ORDERED: P5 PO ×2 (11:15→11:16)
[2016-08-06 16:02] LABS: ALBUMIN 3.3 G/DL (3.5-5.0); ALKALINE PHOSPHATASE 107 U/L (45-117); DIRECT BILIRUBIN 0.2 MG/DL (0.0-0.4); FREE T4 1.88 NG/DL (0.76-1.46); INDIRECT BILIRUBIN(NOT ORDER) 1.1 MG/DL (0.1-0.9); SGOT(AST) 37 U/L (5-40); SGPT(ALT) 45 U/L (5-65); TOTAL BILIRUBIN 1.3 MG/DL (0-1.2); TOTAL PROTEIN 7.2 G/DL (6.0-8.5)
[2016-08-07 04:28] LABS: BASOPHILS 0.1 %; BASOPHILS ABSOLUTE 0.01 10/3/uL (0.0-0.16); EOSINOPHILS 0.6 %; EOSINOPHILS ABSOLUTE 0.06 10/3/uL (0.0-0.53); HEMATOCRIT 32.7 % (36.0-48.0); HEMOGLOBIN 10.8 g/dL (12.0-16.0); IMMATURE GRANULOCYTES 0.5 %; IMMATURE GRANULOCYTES ABSOLUTE 0.05 10/3/uL (0.0-0.11); LYMPHOCYTES 8.7 %; LYMPHOCYTES ABSOLUTE 0.83 10/3/uL (0.67-4.30); MEAN CORPUSCULAR HEMOGLOB 31.1 pg (26.0-34.0); MEAN CORPUSCULAR VOLUME 94.2 fL (80-100); MEAN PLATELET VOLUME 9.3 fL (9.2-13.0); MONOCYTES 7.7 %; MONOCYTES ABSOLUTE 0.73 10/3/uL (0.21-1.20); NEUTROPHILS 82.4 %; NEUTROPHILS ABSOLUTE 7.86 10/3/uL (2.02-8.40); PLATELET COUNT 365 10/3/uL (150-400); RBC DISTRIBUTION WIDTH 13.6 % (12.0-16.0); RED CELL COUNT 3.47 10/6/uL (4.0-5.6); WHITE BLOOD CELLS 9.5 10/3/uL (4.5-10.5)
[2016-08-07 04:29] LABS: MANUAL DIFF NO %
[2016-08-07 04:40] LABS: CALCIUM, SERUM 8.3 MG/DL (8.5-10.4); CHLORIDE, SERUM 107 MMOL/L (96-112); CO2 (CARBON DIOXIDE) 25 MMOL/L (24-34); CREATININE 1.11 MG/DL (0.55-1.02); GFR AFRICAN AMERICAN 55 ML/MIN (>=60); GFR NON AFRICAN AMERICAN 47 ML/MIN (>=60); POTASSIUM, SERUM 4.1 MMOL/L (3.5-5.3); SODIUM, SERUM 140 MMOL/L (135-148)
[2016-08-07 04:41] LABS: BUN (BLOOD UREA NITROGEN) 25 MG/DL (6-23); GLUCOSE, SERUM 118 MG/DL (60-99)
[2016-08-07] MEDS ORDERED: LIPITOR40 PO (11:55)
[2016-08-07] MEDS ORDERED: CORDARONE PO (11:56)
[2016-08-07] MEDS ORDERED: COREG3 PO (11:57)
[2016-08-07] MEDS ORDERED: HYZAAR 50/12.51 TAB PO (11:58)
[2016-08-07] MEDS ORDERED: CARDCD120 PO (12:01)
== END 2016-08-07 13:38 | disposition home or self-care (01) ==
LOC: ER 10:33 → CDU1 11:12
PROVIDERS: Emergency Medicine; Student in an Organized Health Care Education/Training Program
DX: I48.91 Unspecified atrial fibrillation (principal); I25.10 Atherosclerotic heart disease of native coronary artery without angina pectoris; R55 Syncope and collapse; G47.33 Obstructive sleep apnea (adult) (pediatric); E78.5 Hyperlipidemia, unspecified; Z99.81 Dependence on supplemental oxygen; Z95.5 Presence of coronary angioplasty implant and graft; Z79.82 Long term (current) use of aspirin; Z79.899 Other long term (current) drug therapy
CPT/HCPCS: 70450; 71010; 80048; 80076; 83735; 83880; 84439; 84443; 84484; 85025; 85610; 85730; 93005; 96374; 99285; A9270-GY; G0378